=== PATIENT | female | born 2000 | race African-American/Black ===

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

== ENCOUNTER 2019-06-03 09:52 | Emergency (ER) | payer OTHER ==
[~2019-06-03] VITALS: Ht 167.6 cm; Wt 60.1 kg
[~2019-06-03 09:52] MED LIST changes: -SERT25TA PO; +SERT25TA85 PO
[2019-06-03] MEDS ORDERED: METOCLOPRAMIDE 10 MG TAB PO ONE (10:45)
[2019-06-03] MEDS ORDERED: ACETAMINOPHEN TAB 650MG DOSE (2X325MG) PO ONE (10:45)
[2019-06-03] MEDS ORDERED: NAPR-837 PO (10:51)
[2019-06-03] MEDS ORDERED: ZANA4TAB PO (10:51)
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
[2019-06-03 13:20] VITALS: BP 120/75
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
== END 2019-06-03 13:44 | disposition home or self-care (01) ==
LOC: M ED 09:52
DX: Z04.1 Encounter for examination and observation following transport accident (principal); R51 Headache; M25.512 Pain in left shoulder; M54.2 Cervicalgia; V49.40XA Driver injured in collision with unspecified motor vehicles in traffic accident, initial encounter

== ENCOUNTER 2021-10-29 10:03 | Inpatient (IN) | payer BC, OTHER ==
[~2021-10-29] VITALS: Ht 167.6 cm; Wt 56.8 kg
[~2021-10-29 10:03] MED LIST changes: +NAPR-837 PO; +ZANA4TAB PO
[2021-10-29 14:37] LABS: HEMATOCRIT 42.6 % (36.0-47.0); HEMOGLOBIN 14.1 g/dl (12.0-15.5); MEAN CORPUSCULAR HGB CONC 33.1 g/dl (32.0-36.5); MEAN CORPUSCULAR VOLUME 84.7 fl (80.0-96.0); PLATELET COUNT, AUTOMATED 260 10^3/uL (150-450); RED BLOOD COUNT 5.03 10^6/uL (4.00-5.40); WHITE BLOOD COUNT 7.5 10^3/uL (4.0-10.0)
[2021-10-29 15:10] LABS: HCG, SERUM QUALITATIVE NEGATIVE (NEGATIVE)
[2021-10-29 15:16] LABS: AMPHETAMINES LEVEL URINE NEGATIVE (NEGATIVE); BARBITURATES URINE NEGATIVE (NEGATIVE); BENZODIAZEPINES URINE NEGATIVE (NEGATIVE); CANNABINOIDS URINE POSITIVE (NEGATIVE); COCAINE METABOLITE URINE NEGATIVE (NEGATIVE); METHADONE URINE NEGATIVE (NEGATIVE); OPIATES URINE NEGATIVE (NEGATIVE); PHENCYCLIDINE URINE NEGATIVE (NEGATIVE)
[2021-10-29 15:16] LABS: ACETAMINOPHEN LEVEL < 2.0 UG/ML (10.0-30.0); ALBUMIN 4.2 GM/DL (3.2-5.2); ALT/SGPT 19 U/L (12-78); BILIRUBIN,DIRECT 0.1 MG/DL (0.0-0.2); BILIRUBIN,TOTAL 0.4 MG/DL (0.2-1.0); BLOOD UREA NITROGEN 11 MG/DL (7-18); CALCIUM LEVEL 9.6 MG/DL (8.5-10.1); CARBON DIOXIDE LEVEL 28 MEQ/L (21-32); CHLORIDE LEVEL 106 MEQ/L (98-107); CREATININE FOR GFR 0.64 MG/DL (0.55-1.30); ETHYL ALCOHOL (ETHANOL) < 0.003 % (0.000-0.010); GLOMERULAR FILTRATION RATE > 60.0 (>60); GLUCOSE, FASTING 83 MG/DL (70-100); POTASSIUM SERUM 4.2 MEQ/L (3.5-5.1); SALICYLATE LEVEL < 1.7 MG/DL (5.0-30.0); SODIUM LEVEL 139 MEQ/L (136-145); TOTAL PROTEIN 7.3 GM/DL (6.4-8.2)
[2021-10-29 15:25] LABS: RSV AMPLIFICATION NEGATIVE (NEGATIVE)
[2021-10-29] MEDS ORDERED: HOME MED LIST COMPLETE! XX SCH (16:20)
[2021-10-29] MEDS ORDERED: MOM 30ML SUSPENSION UDC PO PRN (16:25)
[2021-10-29] MEDS ORDERED: MAALOX 30 ML SUSP *UDC PO PRN (16:25)
[2021-10-29] MEDS ORDERED: ACETAMINOPHEN TAB 650MG DOSE (2X325MG) PO PRN (16:25)
[2021-10-29] MEDS: traZODone 50 MG TAB PO PRN (22:33)
[2021-10-30] MEDS ORDERED: LORazepam 0.5 MG TAB PO ONE (01:00)
[2021-10-30 06:54] VITALS: BP 107/50
[2021-10-30] MEDS ORDERED: hydrOXYzine 25 MG TAB PO PRN (10:10)
[2021-10-30] MEDS: guaiFENesin ER 600 MG TAB PO SCH ×2 (14:22→20:39)
[2021-10-30] MEDS: ESCITALOPRAM OXALATE 5MG TABLET (LEXAPRO) PO SCH (14:23)
[2021-10-30 18:00] VITALS: BP 140/71
[2021-10-31 06:20] VITALS: BP 108/60
[2021-10-31] MEDS: guaiFENesin ER 600 MG TAB PO SCH ×2 (08:54→21:04)
[2021-10-31] MEDS: ESCITALOPRAM OXALATE 5MG TABLET (LEXAPRO) PO SCH (08:54)
[2021-10-31 17:09] VITALS: BP 129/78
[2021-10-31] MEDS: NYSTATIN 100,000 UNITS/GM TOPICAL PWD 15 GM TOP SCH (21:05)
[2021-10-31] MEDS: traZODone 50 MG TAB PO PRN (21:19)
[2021-11-01 06:55] VITALS: BP 123/82
[2021-11-01] MEDS: guaiFENesin ER 600 MG TAB PO SCH ×2 (08:00→21:30)
[2021-11-01] MEDS: ESCITALOPRAM OXALATE 10 MG TAB (LEXAPRO) PO SCH (08:00)
[2021-11-01] MEDS: NYSTATIN 100,000 UNITS/GM TOPICAL PWD 15 GM TOP SCH ×2 (08:21→21:30)
[2021-11-01 17:36] VITALS: BP 139/82
[2021-11-01] MEDS: traZODone 50 MG TAB PO PRN (23:05)
[2021-11-02 06:56] VITALS: BP 107/62
[2021-11-02] MEDS: NYSTATIN 100,000 UNITS/GM TOPICAL PWD 15 GM TOP SCH ×2 (08:30→21:18)
[2021-11-02] MEDS: guaiFENesin ER 600 MG TAB PO SCH ×2 (08:30→21:18)
[2021-11-02] MEDS: ESCITALOPRAM OXALATE 10 MG TAB (LEXAPRO) PO SCH (08:30)
[2021-11-02] MEDS: traZODone 50 MG TAB PO PRN (22:21)
[2021-11-03 06:40] VITALS: BP 126/60
[2021-11-03] MEDS: ESCITALOPRAM OXALATE 10 MG TAB (LEXAPRO) PO SCH (08:14)
[2021-11-03] MEDS: NYSTATIN 100,000 UNITS/GM TOPICAL PWD 15 GM TOP SCH ×2 (08:14→20:26)
[2021-11-03] MEDS: guaiFENesin ER 600 MG TAB PO SCH ×2 (08:14→20:26)
[2021-11-03 16:02] VITALS: BP 133/76
[2021-11-03] MEDS: traZODone 50 MG TAB PO PRN (20:26)
[2021-11-04 06:34] VITALS: BP 134/71
[2021-11-04] MEDS ORDERED: LEXA1TAB PO (08:44)
[2021-11-04] MEDS ORDERED: HYDR-3363 PO (08:44)
[2021-11-04] MEDS ORDERED: TRAZ-252 PO (08:44)
[2021-11-04] MEDS ORDERED: NYST10006 TOP (08:44)
[2021-11-04] MEDS: guaiFENesin ER 600 MG TAB PO SCH (08:49)
[2021-11-04] MEDS: NYSTATIN 100,000 UNITS/GM TOPICAL PWD 15 GM TOP SCH (08:49)
[2021-11-04] MEDS: ESCITALOPRAM OXALATE 10 MG TAB (LEXAPRO) PO SCH (08:49)
== END 2021-11-04 10:25 | disposition home or self-care (01) | DRG 755 ==
LOC: M ED 10:03 → M PSY 16:25
PROVIDERS: ADMIT Psychiatry & Neurology Psychiatry; ATTEND Psychiatry & Neurology Psychiatry
DX: F43.23 Adjustment disorder with mixed anxiety and depressed mood (principal); R45.851 Suicidal ideations; Z91.51 Personal history of suicidal behavior; Z62.811 Personal history of psychological abuse in childhood; F10.10 Alcohol abuse, uncomplicated; F12.10 Cannabis abuse, uncomplicated; Z20.822 Contact with and (suspected) exposure to COVID-19; J06.9 Acute upper respiratory infection, unspecified; Z56.6 Other physical and mental strain related to work

== ENCOUNTER 2022-07-01 22:58 | Emergency (ER) | payer BC ==
[~2022-07-01] VITALS: Ht 167.6 cm; Wt 59.1 kg
[2022-07-01 22:58] VITALS: BP 138/90
[~2022-07-01 22:58] MED LIST changes: +HYDR-3363 PO; +LEXA1TAB PO; +NYST10006 TOP; +TRAZ-252 PO
[2022-07-01] MEDS ORDERED: METR-265 PO (23:06)
[2022-07-02] MEDS ORDERED: HYDR-3363 PO (19:01)
== END 2022-07-02 02:42 | disposition left against medical advice (07) ==
LOC: M ED 22:58
DX: Z53.21 Procedure and treatment not carried out due to patient leaving prior to being seen by health care provider (principal)

== ENCOUNTER 2022-07-02 09:10 | Emergency (ER) | payer BC ==
[~2022-07-02] VITALS: Ht 167.6 cm; Wt 56.7 kg
[~2022-07-02 09:10] MED LIST changes: +METR-265 PO
[2022-07-02 12:46] LABS: HEMATOCRIT 41.9 % (36.0-47.0); HEMOGLOBIN 14.1 g/dl (12.0-15.5); MEAN CORPUSCULAR HEMOGLOBIN 28.7 pg (27.0-33.0); MEAN CORPUSCULAR HGB CONC 33.7 g/dl (32.0-36.5); MEAN CORPUSCULAR VOLUME 85.2 fl (80.0-96.0); PLATELET COUNT, AUTOMATED 264 10^3/uL (150-450); RED BLOOD COUNT 4.92 10^6/uL (4.00-5.40); WHITE BLOOD COUNT 8.4 10^3/uL (4.0-10.0)
[2022-07-02 13:17] LABS: BLOOD UREA NITROGEN 13 MG/DL (7-18); CALCIUM LEVEL 10.2 MG/DL (8.5-10.1); CARBON DIOXIDE LEVEL 26 MEQ/L (21-32); CHLORIDE LEVEL 107 MEQ/L (98-107); CREATININE FOR GFR 0.76 MG/DL (0.55-1.30); GLOMERULAR FILTRATION RATE > 60.0 (>60); GLUCOSE, FASTING 90 MG/DL (70-100); POTASSIUM SERUM 4.4 MEQ/L (3.5-5.1); SODIUM LEVEL 139 MEQ/L (136-145)
[2022-07-02 13:50] VITALS: BP 122/75
[2022-07-02] MEDS ORDERED: HYDR-3363 PO (19:01)
== END 2022-07-02 13:51 | disposition home or self-care (01) ==
LOC: M ED 09:10
DX: R07.89 Other chest pain (principal); F41.9 Anxiety disorder, unspecified

== ENCOUNTER → 2022-08-18 | Outpatient (CLI) | payer BC ==
[2022-08-18 15:28] LABS: BASO % 0.8 % (0.0-1.0); EOS % 0.8 % (0.0-3.0); HEMATOCRIT 42.6 % (36.0-47.0); HEMOGLOBIN 13.9 g/dl (12.0-15.5); LYMPH # 1.8 10^3/uL (1.5-5.0); MEAN CORPUSCULAR HEMOGLOBIN 28.4 pg (27.0-33.0); MEAN CORPUSCULAR HGB CONC 32.6 g/dl (32.0-36.5); MEAN CORPUSCULAR VOLUME 86.9 fl (80.0-96.0); MONO # 0.5 10^3/uL (0.0-0.8); MONO % 9.7 % (2.0-8.0); NEUTROPHILS # 2.8 10^3/uL (1.5-8.5); NEUTROPHILS % 53.5 % (36.0-66.0); PLATELET COUNT, AUTOMATED 245 10^3/uL (150-450); WHITE BLOOD COUNT 5.1 10^3/uL (4.0-10.0)
[2022-08-18 16:37] LABS: ALBUMIN 4.1 GM/DL (3.2-5.2); ALT/SGPT 19 U/L (12-78); BILIRUBIN,TOTAL 0.5 MG/DL (0.2-1.0); BLOOD UREA NITROGEN 7 MG/DL (7-18); CALCIUM LEVEL 9.7 MG/DL (8.5-10.1); CARBON DIOXIDE LEVEL 27 MEQ/L (21-32); CHLORIDE LEVEL 106 MEQ/L (98-107); CREATININE FOR GFR 0.79 MG/DL (0.55-1.30); FREE T4 0.96 NG/DL (0.76-1.46); GLOMERULAR FILTRATION RATE > 60.0 (>60); GLUCOSE, FASTING 90 MG/DL (70-100); POTASSIUM SERUM 4.8 MEQ/L (3.5-5.1); SODIUM LEVEL 138 MEQ/L (136-145); TOTAL PROTEIN 7.3 GM/DL (6.4-8.2)
== END ==
LOC: M PLALAB 12:23
PROVIDERS: ATTEND Registered Nurse
DX: F43.23 Adjustment disorder with mixed anxiety and depressed mood (principal)

== ENCOUNTER → 2022-09-07 | Outpatient (REF) | payer BC | LOC: M LAB REF 13:23 | PROVIDERS: ATTEND Registered Nurse | DX: R19.7 Diarrhea, unspecified (principal) ==

== ENCOUNTER → 2022-10-13 | Outpatient (REF) | payer BC | LOC: M LAB REF 15:08 | PROVIDERS: ATTEND Registered Nurse | DX: R35.0 Frequency of micturition (principal) ==

== ENCOUNTER → 2024-10-04 | Outpatient (CLI) | payer BC | LOC: M WHC 11:54 | PROVIDERS: ATTEND Physician Assistant Medical | DX: E28.2 Polycystic ovarian syndrome (principal) ==